=== PATIENT | female | born 1955 | race Caucasian/White ===

== ENCOUNTER 2020-10-18 22:38 | Emergency (ER) | payer OTHER, SELFPAY ==
[2020-10-18 23:40] VITALS: BP 142/76; PULSE 100; RESP 20; O2SAT 98; BMI 23.0
[2020-10-19] VITALS (10 sets, daily range): BP systolic 153–176; BP diastolic 74–90; PULSE 90–98; RESP 14–24; O2SAT 98–100
--- NOTE | 2020-10-19 01:00 | DI.RAD.S_ITS ---
PROCEDURE: XR CHEST 1V INDICATIONS: chest pain, HTN TECHNIQUE: One view of the chest was acquired. COMPARISON: None. FINDINGS: Surgical changes and devices: None. Lungs and pleura: Hyperinflation consistent with COPD. Lungs are clear. No pleural effusions or pneumothorax. Mediastinum: Mediastinal contours appear normal. Heart size is normal. Bones and chest wall: No suspicious bony lesions. Overlying soft tissues appear unremarkable. IMPRESSION: No acute cardiopulmonary disease. COPD. No significant discrepancy with the hourly shift manager radiology preliminary report. Dictated by: Bogdan Alvarenga M.D. on 10/19/2020 at 7:40 Approved by: Bogdan Alvarenga M.D. on 10/19/2020 at 7:40
[2020-10-19 01:10] LABS: Add Manual Diff / Slide Review NO; Basophils Absolute Auto 0 /uL (0-100); Basophils Percent Auto 0.3 % (0-2); Eosinophils Absolute Auto 0 /uL (0-450); Eosinophils Percent Auto 0.3 % (2-4); Hematocrit 39.7 % (36-46); Hemoglobin 13.2 g/dL (12.0-16.0); Lymphocytes Absolute Auto 2500 /uL (1100-4500); Lymphocytes Percent Auto 26.1 % (25-40); Mean Corpuscular HGB Conc 33.3 % (30-36); Mean Corpuscular Hemoglobin 28.9 PG (26-34); Monocytes Absolute Auto 600 /uL (0-900); Monocytes Percent Auto 6.5 % (3-14); Neutrophils Absolute Auto 6400 /uL (1500-7000); Neutrophils Percent Auto 66.8 % (50-75); Platelet Count 228 X10^3/uL (150-400); Red Blood Cell Count 4.56 X10^6/uL (4.0-5.2); Red Cell Distribution Width 12.6 % (11.6-14.8); White Blood Cell Count 9.5 X10^3/uL (4.5-11.0)
[2020-10-19 01:13] LABS: Alanine Aminotransferase 22 IU/L (<35); Albumin 4.7 g/dL (3.5-5.0); Albumin Globulin Ratio 1.5 (1.0-2.8); Alkaline Phosphatase 82 U/L (38-126); Aspartate Aminotransferase 36 IU/L (14-36); BUN Creatinine Ratio 18.6 (6-22); Bilirubin Total 0.6 mg/dL (0.2-1.3); Blood Urea Nitrogen 13 mg/dL (7-17); Calcium 9.6 mg/dL (8.4-10.2); Carbon Dioxide 31 mmol/L (22-32); Chloride 99 mmol/L (98-107); Creatine Kinase 50 U/L (30-135); Estimated Glomerular Filt Rate > 60.0 mL/min (>60); Globulin 3.2 g/dL (1.7-4.1); Glucose 117 mg/dL (80-110); HEMOLYSIS < 15 (0-50); Lipase 55 U/L (23-300); Potassium 3.7 mmol/L (3.4-5.1); Sodium 139 mmol/L (137-145); Total Protein 7.9 g/dL (6.3-8.2)
[2020-10-19 01:25] LABS: Troponin I < 0.012 ng/mL (0.01-0.034)
--- NOTE | 2020-10-19 01:50 | ED_ITS ---
HPI - General Adult General Chief complaint: Hypertension Stated complaint: HIGH BLOOD PRESSURE Time Seen by Provider: 10/19/20 01:39 Source: patient and family Mode of arrival: Ambulatory Limitations: no limitations and language barrier History of Present Illness HPI narrative: Patient is 65-year-old female history of hypertension, hypothyroid presenting today with increased blood pressure. She has had progressively increasing blood pressures over the last 4 days. She has been taking them daily as instructed by her doctor it started rising 4 days ago. Systolic was in the 150 however yesterday and today she has had systolics in the 180s with diastolics in the 100s. Yesterday she had quite a severe headache. She did drink water and coffee which she typically does not do and her headache went away. She no longer has a headache. She a had no nausea vomiting numbness tingling or weakness. She currently has no chest pain or shortness of breath. No prior history of coronary artery disease. She was recently diagnosed with hypothyroid and started on levothyroxine. She is concerned that her levothy roxine may be causing elevated blood pressure. Related Data Allergies Allergy/AdvReac Type Severity Reaction Status Date / Time atenolol Allergy Difficulty Verified 10/18/20 23:47 Breathing Penicillins Allergy swelling Verified 10/18/20 23:48 of hands Review of Systems Review of Systems Narrative: GENERAL: Denies chills, fatigue, malaise, fever, sweats, travel HEENT: Denies sinus pain, ear pain, sore throat, difficulty swallowing, neck pain RESPIRATORY: Denies dyspnea, cough, wheezing, hemoptysis, sputum. CARDIOVASCULAR: Denies chest pain, palpitations, orthopnea, edema GASTROINTESTINAL: Denies nausea, vomiting, abdominal pain, diarrhea, constipation, melena. : Denies dysuria, frequency, incontinence, hematuria, urinary retention, flank pain. MUSCULOSKELETAL: Denies weakness, joint pain, or bony pain SKIN: No rash, no erythema, no pruritus NEUROLOGIC: See HPI PSYCHIATRIC: No concerning psychosocial issues. 12 point review of systems is negative except for those stated above and HPI Patient History Medical History Hypertension Hypothyroid Social History Smoking Status: Never smoker Smoking Status: Never smoker Exam Initial Vital Signs Initial Vital Signs: Vital Signs Pulse Rate 100 H 10/18/20 23:40 Respiratory Rate 20 10/18/20 23:40 Blood Pressure 142/76 H 10/18/20 23:40 Pulse Oximetry 98 10/18/20 23:40 GENERAL: Alert well-appearing 65-year-old female and in no acute distress. HEENT: Head atraumatic,EOMI, pupils reactive, face symmetric, moist mucous membranes CARDIOVASCULAR: Regular rate and rhythm without murmurs, rubs or gallops. RESPIRATORY: Breath sounds equal bilaterally, no wheezes rales or rhonchi. ABDOMEN: Soft, nontender. Normoactive bowel sounds all 4 quadrants. No guarding or rebound. EXTREMITIES: Normal range of motion, no clubbing or edema. Neurovascularly int act NEUROLOGICAL: Alert and oriented x4.Normal gait and speech. [employer] Efficient Site Manager strength equal bilaterally no focal deficits SKIN: Warm, dry, no laceration, no petechiae, no rashes or lesions. Course Orders Ordered: ED Orders 10/19/20 00:48 Complete Blood Count AUTO DIFF Stat Comprehensive Metabolic Panel Stat Lipase Stat Troponin & CK Cardiac Panel Stat 10/19/20 01:00 XR chest 1V Stat EKG-12 Lead Stat 10/19/20 02:00 CT head/brain wo con Stat Discontinued Medications Aspirin (Aspirin 81 Mg Chew Tab) 324 mg PO NOW ONE Stop: 10/19/20 01:01 Last Admin: 10/19/20 02:09 Dose: Not Given Documented by: AB Sodium Chloride (Normal Saline 0.9%) 1,000 mls @ 150 mls/hr IV CONT MAX Last Admin: 10/19/20 02:10 Dose: Not Given Documented by: AB Vital Signs Vital signs: Vital Signs - 8 hr 10/18/20 23:40 10/19/20 00:50 10/19/20 01:00 Pulse Rate 100 H 91 H 91 H Respiratory Rate 20 16 14 Blood Pressure 142/76 H Pulse Oximetry 98 100 100 10/19/20 01:50 10/19/20 01:53 10/19/20 02:00 Pulse Rate 96 H 98 H 97 H Respiratory Rate 21 24 22 Blood Pressure 176/90 H Pulse Oximetry 99 98 99 10/19/20 02:31 10/19/20 02:32 10/19/20 03:00 Pulse Rate 93 H 92 H 91 H Respiratory Rate 16 19 Blood Pressure 165/77 H 154/74 H Pulse Oximetry 100 100 99 10/19/20 03:30 10/19/20 04:00 Pulse Rate 91 H 90 Respiratory Rate 16 21 Blood Pressure 153/74 H 160/75 H Pulse Oximetry 99 Medical Decision Making Lab Data Result diagrams: 10/19/20 00:48 10/19/20 00:48 Labs: Lab Results 10/19/20 10/19/20 Range/Units 00:48 00:48 WBC 9.5 (4.5-11.0) X10^3/uL RBC 4.56 (4.0-5.2) X10^6/uL Hgb 13.2 (12.0-16.0) g/dL Hct 39.7 (36-46) % MCV 87.0 (80-100) fL MCH 28.9 (26-34) PG MCHC 33.3 (30-36) % RDW 12.6 (11.6-14.8) % Plt Count 228 (150-400) X10^3/uL Neut % (Auto) 66.8 (50-75) % Lymph % (Auto) 26.1 (25-40) % [place] % (Auto) 6.5 (3-14) % Eos % (Auto) 0.3 L (2-4) % Baso % (Auto) 0.3 (0-2) % Neut # (Auto) 6400 (2409-7221) /uL Lymph # (Auto) 2500 (5381-1366) /uL [place] # (Auto) 600 (0-900) /uL Eos # (Auto) 0 (0-450) /uL Baso # (Auto) 0 (0-100) /uL Sodium 139 (137-145) mmol/L Potassium 3.7 (3.4-5.1) mmol/L Chloride 99 (98-107) mmol/L Carbon Dioxide 31 (22-32) mmol/L BUN 13 (7-17) mg/dL Creatinine 0.70 (0.52-1.04) mg/dL Estimated GFR > 60.0 (>60) mL/min BUN/Creatinine Ratio 18.6 (6-22) Glucose 117 H (80-110) mg/dL Calcium 9.6 (8.4-10.2) mg/dL Total Bilirubin 0.6 (0.2-1.3) mg/dL AST 36 (14-36) IU/L ALT 22 (<35) IU/L Alkaline Phosphatase 82 (38-126) U/L Total Creatine Kinase 50 (30-135) U/L CK-MB (CK-2) TNP CK-MB (CK-2) Rel Index TNP Troponin I < 0.012 (0.01-0.034) ng/mL Total Protein 7.9 (6.3-8.2) g/dL Albumin 4.7 (3.5-5.0) g/dL Globulin 3.2 (1.7-4.1) g/dL Albumin/Globulin Ratio 1.5 (1.0-2.8) Lipase 55 (23-300) U/L Imaging Data CT scan - head: Radiologist's Impression: Preliminary report no acute intracranial abnormality ECG Data Interpretation: Normal sinus rhythm rate 92 UT interval 168 QRS [address] changes or T-wave inversions no priors to compare MDM Narrative Medical decision making narrative: Patient's blood pressure is overall doing about the same or better. She currently is asymptomatic. Head CT and blood work were overall reassuring. No sign of end-organ damage. At this time I recommend that she continue to monitor blood pressure at home once daily and discussed results with her primary care provider. If she was him symptomatic as she did previously to return to the ED. patient's blood pressure has improved to the 150 she remains completely asymptomatic. At this time follow up outpatient. Discharge Plan Departure Patient Disposition: Home Clinical Impression: Hypertension Instructions: DI for High Blood Pressure Activity Restrictions/Additional Instructions: *You have been diagnosed with hypertension *What to do: At this time please continue to monitor your blood pressure. I recommend taking it once daily and recording it. Certainly levothyroxine can actually cause elevated blood pressure this may or may not be your cause. Do not change her medications at this time. *Continue to take medications as directed Take morning medication as prescribed *Follow up with your primary care provider in 2-3 days *Return to ER if you should have increased headache, chest pain, shortness of breath, blood pressure persistently greater than 185/100 or any new, worsening or concerning symptoms
--- NOTE | 2020-10-19 02:00 | DI.CT.S_ITS ---
PROCEDURE: CT HEAD/BRAIN WO CON INDICATIONS: headache wit htn TECHNIQUE: Noncontrast 4.5 mm thick angled axial sections acquired from the foramen magnum to the vertex, with coronal and sagittal reformats. For radiation dose reduction, the following was used: automated exposure control, adjustment of mA and/or kV according to patient size. COMPARISON: None. FINDINGS: Image quality: Excellent. CSF spaces: Basal cisterns are patent. No extra-axial fluid collections. The ventricles are symmetric in size and shape. Brain: No intracranial bleeds or masses. There is cerebral volume loss for age, with resultant ventricular and sulcal prominence. There are periventricular and deep white matter chronic small vessel ischemic changes. There is intracranial internal carotid artery atherosclerosis. Skull and face: Calvarium and visualized facial bones appear intact, without suspicious lesions. Sinuses: Visualized sinuses and mastoids are clear. IMPRESSION: No acute intracranial process. Findings concordant with preliminary study interpretation. Dictated by: Uday Back M.D. on 10/19/2020 at 8:21 Approved by: Uday Back M.D. on 10/19/2020 at 8:30
== END 2020-10-19 04:10 | disposition home or self-care (01) ==
PROVIDERS: Emergency Provider Emergency Medicine
DX: I10 Essential (primary) hypertension (principal); R51.9 Headache, unspecified
CPT/HCPCS: 36415; 70450; 71045; 80053; 82550; 83690; 84484; 85025; 93005; 93010; 99283; 99284